=== PATIENT | female | born 1980 | race Two or more races ===

== ENCOUNTER 2016-08-08 08:25 | Emergency (ER) | payer BC ==
[~2016-08-08] VITALS: Ht 152.4 cm; Wt 60.3 kg
[2016-08-08 08:25] VITALS: BP 126/77
[~2016-08-08 08:25] MED LIST: DENIES MEDS; ONDA4TAB8 PO; OXYC-128 PO
[2016-08-08] MEDS ORDERED: diphenhydrAMINE HCL 25 MG CAPSULE ONE (09:06)
[2016-08-08] MEDS ORDERED: predniSONE 20 MG TABLET ONE (09:06)
[2016-08-08] MEDS ORDERED: predniSONE 20 MG TABLET PO ONE (09:30)
[2016-08-08] MEDS ORDERED: diphenhydrAMINE HCL 25 MG CAPSULE PO ONE (09:30)
== END 2016-08-08 10:09 | disposition home or self-care (01) ==
LOC: ER 08:27
DX: R21 Rash and other nonspecific skin eruption (principal)
CPT/HCPCS: 99283; A4606; J7512; Q0163; Z7610